=== PATIENT | male | born 1950 | race Caucasian/White ===

== ENCOUNTER → 2023-09-12 12:13 | Outpatient (REF) | payer MEDICARE, OTHER, SELFPAY ==
[2023-09-12 12:41] LABS: % Basophils 0.3 % (0-2); % Eosinophils 0.4 % (0-6); % Immature Granulocytes 0.3 % (0-0.5); % Lymphocytes 25.4 % (20.5-51.1); % Monocytes 7.7 % (1.7-9.3); % Neutrophils 65.9 % (42.2-75.2); Absolute Lymphocytes 1.7 10^3/uL (1.2-3.4); Absolute Monocytes 0.5 10^3/uL (0.1-0.6); Absolute Neutrophils 4.5 10^3/uL (1.4-6.5); Hematocrit 38.3 % (39.0-52.0); Hemoglobin 13.1 g/dL (13.0-18.0); Mean Corp Hgb Conc. 34.2 g/dL (33.0-37.0); Mean Corpuscular Hgb 31.4 pg (27.0-31.0); Mean Corpuscular Volume 91.8 fL (80.0-94.0); Mean Platelet Volume 9.7 fL (7.4-10.4); Nucleated Red Blood Cells % 0 % (-); Platelet Count 170 10^3/uL (130-400); Red Blood Cell Count 4.17 10^6/uL (4.70-6.10); Red Cell Dist. Width 13.9 % (11.5-14.5); White Blood Cell Count 6.9 10^3/uL (4.8-10.8)
[2023-09-12 13:29] LABS: ALT (SGPT) 20 U/L (0-50); AST (SGOT) 23 U/L (17-59); Albumin 4.6 g/dl (3.5-5.0); Alkaline Phosphatase 83 U/L (38-126); Blood Urea Nitrogen 26 mg/dl (9-20); Calcium 9.8 mg/dl (8.4-10.2); Carbon Dioxide 28 mmol/L (22-30); Chloride 101 mmol/L (98-107); Glucose 95 mg/dl (70-99); Potassium 4.5 mmol/L (3.5-5.1); Sodium 140 mmol/L (135-145); Total Bilirubin 1.7 mg/dl (0.2-1.3); Total Protein 7.8 g/dl (6.3-8.2); eGFR > 60.00
[2023-09-12 13:59] LABS: IgA 368 mg/dl (70-400); IgG 1504 mg/dl (700-1600); IgM 35 mg/dl (40-230)
[2023-09-12 14:02] LABS: Erythrocyte Sed Rate 57 mm/hour (0-20)
[2023-09-12 21:00] LABS: Hepatitis B Surface Antigen Negative (Negative)
[2023-09-12 21:17] LABS: Hepatitis B Surface Antibody Negative
[2023-09-12 21:43] LABS: Hepatitis A Antibody, Total Negative (Negative)
[2023-09-13 15:12] LABS: Hepatitis B Core Ab, Total Negative (Negative)
[2023-09-14 22:07] LABS: Quantiferon Mitogen minus NIL 9.05 IU/mL; Quantiferon NIL 0.03 IU/mL; Quantiferon Plus TB1 minus NIL 0.05 IU/mL (0.00-0.34); Quantiferon Plus TB2 minus NIL 0.04 IU/mL (0.00-0.34); Quantiferon TB Gold Plus Negative (Negative)
== END ==
LOC: REG 12:13
PROVIDERS: ATTENDING PHYSICIAN Internal Medicine; FAMILY PHYSICIAN Family Medicine
DX: K75.9 Inflammatory liver disease, unspecified (principal); M05.79 Rheumatoid arthritis with rheumatoid factor of multiple sites without organ or systems involvement; Z22.7 Latent tuberculosis; Z51.81 Encounter for therapeutic drug level monitoring
CPT/HCPCS: 36415; 80053; 82784; 85025; 85652; 86140; 86480; 86704; 86706; 86708; 87340

== ENCOUNTER → 2023-10-27 07:03 | Outpatient (REF) | payer MEDICARE, OTHER, SELFPAY ==
[2023-10-27 07:46] LABS: % Basophils 0.2 % (0-2); % Eosinophils 0.7 % (0-6); % Immature Granulocytes 0.2 % (0-0.5); % Neutrophils 64.9 % (42.2-75.2); Absolute Lymphocytes 1.5 10^3/uL (1.2-3.4); Absolute Monocytes 0.5 10^3/uL (0.1-0.6); Absolute Neutrophils 3.7 10^3/uL (1.4-6.5); Hematocrit 38.6 % (39.0-52.0); Mean Corp Hgb Conc. 33.7 g/dL (33.0-37.0); Mean Corpuscular Hgb 31.4 pg (27.0-31.0); Mean Corpuscular Volume 93.2 fL (80.0-94.0); Mean Platelet Volume 9.7 fL (7.4-10.4); Nucleated Red Blood Cells % 0 % (-); Platelet Count 179 10^3/uL (130-400); Red Blood Cell Count 4.14 10^6/uL (4.70-6.10); Red Cell Dist. Width 13.9 % (11.5-14.5); White Blood Cell Count 5.7 10^3/uL (4.8-10.8)
[2023-10-27 08:09] LABS: ALT (SGPT) 16 U/L (0-50); AST (SGOT) 20 U/L (17-59); Alkaline Phosphatase 73 U/L (38-126); Blood Urea Nitrogen 25 mg/dl (9-20); Calcium 9.4 mg/dl (8.4-10.2); Carbon Dioxide 24 mmol/L (22-30); Chloride 107 mmol/L (98-107); Glucose 106 mg/dl (70-99); HDL Cholesterol 44 mg/dl; LDL Cholesterol, Calculated 37 mg/dl; Potassium 4.3 mmol/L (3.5-5.1); Sodium 140 mmol/L (135-145); Total Bilirubin 1.4 mg/dl (0.2-1.3); Total Cholesterol 102 mg/dl (50-199); Total Protein 6.8 g/dl (6.3-8.2); Triglyceride 105 mg/dl (10-149); Very Low Density Lipoprotein 21 mg/dl (0-30); eGFR > 60.00
== END ==
LOC: REG 07:03
PROVIDERS: ATTENDING PHYSICIAN Family Medicine
DX: M54.50 Low back pain, unspecified (principal); M05.79 Rheumatoid arthritis with rheumatoid factor of multiple sites without organ or systems involvement; Z79.899 Other long term (current) drug therapy; I25.118 Atherosclerotic heart disease of native coronary artery with other forms of angina pectoris; J44.9 Chronic obstructive pulmonary disease, unspecified; J98.4 Other disorders of lung; I10 Essential (primary) hypertension; E78.00 Pure hypercholesterolemia, unspecified; G47.33 Obstructive sleep apnea (adult) (pediatric)
CPT/HCPCS: 36415; 80053; 80061; 85025

== ENCOUNTER → 2024-01-10 08:15 | Outpatient (REF) | payer MEDICARE, OTHER, SELFPAY | LOC: RCS 08:15 | PROVIDERS: ATTENDING PHYSICIAN Internal Medicine Cardiovascular Disease; FAMILY PHYSICIAN Family Medicine | DX: I35.1 Nonrheumatic aortic (valve) insufficiency (principal) | CPT/HCPCS: 93306 ==

== ENCOUNTER 2024-02-02 07:42 | Emergency (ER) | payer MEDICARE, OTHER, SELFPAY ==
[2024-02-02 07:42] VITALS: BP 187/77
--- NOTE | 2024-02-02 07:59 | ED.GENMED ---
History of Present Illness
General
Chief Complaint: DVT/Possible Blood Clot
Source: patient
Time Seen by Provider: 02/02/24 07:52
History of Present Illness
History of Present Illness:
73yoM with a history of hypertension and rheumatoid arthritis presenting for evaluation of a lump in his right lower leg. He bumped his lower leg while on a plane 5 days ago. He has been having increasing swelling and pain over the past few days and
wanted to get the lump checked out. He denies any fevers, chills, chest pain. He has baseline shortness of breath which is no worse than normal.
Past History
Past History
ED Past Medical History: Arrthythmia, COPD, HTN and Other (Arthritis)
ED Past Surgical History: None
Social History
Tobacco: Non-smoker
Alcohol: None
Drug: None
Personal:
Living: with family
Employment: Retired
Phy Exam
General Physical Exam
General Presentation: well appearing and no apparent distress
General age: appears stated age
General Skin: warm and dry
General Habitus: normal
General Mental: alert
Pulmonary Exam
Pulmonary Exam: no respiratory distress
Musculoskeletal Exam
Musculoskeletal Exam: other (Small area of swelling, ecchymosis, and tenderness to the R anterior lower leg consistent with a hematoma. Compartments soft. ROM of knee and ankle intact. 2+ DP pulse.)
Skin Exam
Skin Exam: normal color and warm/dry
Psychiatric Exam
Psychiatric Exam: normal mood/affect
Course
Orders/Labs/Results
Orders:
Orders
02/02/24 07:59
CR Leg Tibia/fibula Right 2 Vw Urgent
Comment:
Reason For Exam: Pain
Venous Doppler Lwr Ext Rt [US Periph Venous LOWER Ext RT] Urgent
Comment:
Reason For Exam: R lower leg pain
Vital Signs
Initial and Last Documented VS:
Initial Vital Signs
Temp Pulse Resp BP Pulse Ox
97.5 F 63 18 187/77 93
02/02/24 07:42 02/02/24 07:42 02/02/24 07:42 02/02/24 07:42 02/02/24 07:42
Last Documented Vital Signs
Temp Pulse Resp BP Pulse Ox
97.5 F 63 18 187/77 98
02/02/24 07:42 02/02/24 07:42 02/02/24 07:42 02/02/24 07:42 02/02/24 08:03
MDM/Problems Addressed
Differential Diagnosis Includes:
73yoM here with a lump to the R lower leg. Bumped his leg on a plane 5 days ago. C/o worsening pain and swelling. No CP/SOB. No fevers. He is hypertensive with otherwise normal vitals. He is well appearing in no distress. There is an area of
swelling in the R anterior lower leg that is tender. Exam consistent with hematoma. No clinical signs of infection. Doubt fracture or DVT.
Initial ED plan: Will check R tib/fib x-rays and venous duplex for completeness.
*Critical Care Note
Total Time (30-74mins, 75-104mins- exclusive of procedures): Not Applicable
Update Note
Update Note:
Venous duplex is negative for DVT. X-rays appear normal per my interpretation. He is stable for discharge. Supportive care discussed including ice and elevation. ED return precautions discussed. He was discharged in stable condition.
ED Attending Note
-
Portions of this chart may have been created with voice recognition software.� Occasional wrong word or��sound alike� substitutions may have occurred due to the inherent limitations of voice recognition software.
Discharge Plan
Departure
Patient Disposition: Home (Routine Discharge)
Date of Disposition: 02/02/24
Time of Disposition: 09:16
Patient with high blood pressure during this ER visit?: Yes
Discharge Problem:
Hematoma of right lower leg
Instructions: Hematoma
Prescriptions:
No Action
aspirin 81 MG tablet,delayed release (DR/EC)
81 mg PO .EVERY OTHER DAY
LISINOPRIL/HYDROCHLOROTHIAZIDE
1 tab PO DAILY
Patient Comments:
PATIENT THINKS HIS DOSE IS 20 MG
cholecalciferol (vitamin D3) 2,000 UNIT tablet
2,000 unit PO DAILY
albuterol sulfate [Proventil HFA] 90 MCG/PUFF HFA aerosol inhaler
1 puff inhalation Q4HPRN PRN (Reason: prn for shortness of breath) Qty: 1 0RF
atorvastatin 10 MG tablet
10 mg PO QPM
prednisone 5 MG tablet
5 mg PO DAILY
Activity Restrictions/Additional Instructions:
Apply ice to affected area and elevate your leg to help with swelling. Take Tylenol as needed for pain.
Please follow-up with your family doctor. Return to the ER with any worsening symptoms.
Interventions
Interventions:
*Risk Screen - Suicide Last Done: 02/02/24 08:03
*General Assessment Last Done: 02/02/24 08:03
*Neglect/Abuse Screening Last Done: 02/02/24 08:03
ED- Fall Risk Assessment Last Done: 02/02/24 08:03
*ED COVID-19 Vaccine History Last Done: 02/02/24 08:03
*Nursing Disposition Last Done: 02/02/24 09:31
ED- Cardiac Assessment Last Done: 02/02/24 08:03
ED- Pulmonary Assessment Last Done: 02/02/24 08:03
ED-Peripheral Vascular Assessment Last Done: 02/02/24 08:03
ED-Skin Assessment Last Done: 02/02/24 08:03
Discharge Date and Time
Discharge Date/Time: 02/02/24 09:31
Print Language: JAPANESE
[2024-02-02 08:03] VITALS: BMI 25.9
== END 2024-02-02 09:31 | disposition home or self-care (01) ==
LOC: EMR 07:42
PROVIDERS: EMERGENCY PHYSICIAN Emergency Medicine; FAMILY PHYSICIAN Family Medicine
DX: S80.11XA Contusion of right lower leg, initial encounter (principal); W22.8XXA Striking against or struck by other objects, initial encounter; I10 Essential (primary) hypertension; M06.9 Rheumatoid arthritis, unspecified; J44.9 Chronic obstructive pulmonary disease, unspecified
CPT/HCPCS: 99284; 73590; 93971

== ENCOUNTER → 2024-10-03 09:25 | Outpatient (REF) | payer MEDICARE, OTHER, SELFPAY | LOC: RAD 09:25 | PROVIDERS: ATTENDING PHYSICIAN Nurse Practitioner Family; FAMILY PHYSICIAN Family Medicine | DX: M79.675 Pain in left toe(s) (principal) | CPT/HCPCS: 73660 ==

== ENCOUNTER → 2024-11-22 07:21 | Outpatient (REF) | payer MEDICARE, OTHER, SELFPAY ==
[2024-11-22 07:51] LABS: % Basophils 0.3 % (0-2); % Eosinophils 0.5 % (0-6); % Immature Granulocytes 0.2 % (0-0.5); % Lymphocytes 29.2 % (20.5-51.1); % Monocytes 6.4 % (1.7-9.3); % Neutrophils 63.4 % (42.2-75.2); Absolute Lymphocytes 1.9 10^3/uL (1.2-3.4); Absolute Monocytes 0.4 10^3/uL (0.1-0.6); Absolute Neutrophils 4.1 10^3/uL (1.4-6.5); Hemoglobin 14.2 g/dL (13.0-18.0); Mean Corp Hgb Conc. 33.8 g/dL (33.0-37.0); Mean Corpuscular Hgb 31.1 pg (27.0-31.0); Mean Corpuscular Volume 91.9 fL (80.0-94.0); Mean Platelet Volume 10.1 fL (7.4-10.4); Nucleated Red Blood Cells % 0 % (-); Platelet Count 156 10^3/uL (130-400); Red Blood Cell Count 4.57 10^6/uL (4.70-6.10); Red Cell Dist. Width 13.7 % (11.5-14.5); White Blood Cell Count 6.4 10^3/uL (4.8-10.8)
[2024-11-22 11:06] LABS: ALT (SGPT) 18 U/L (0-50); AST (SGOT) 18 U/L (17-59); Albumin 4.5 g/dl (3.5-5.0); Alkaline Phosphatase 63 U/L (38-126); Blood Urea Nitrogen 26 mg/dl (9-20); Calcium 9.3 mg/dl (8.4-10.2); Carbon Dioxide 27 mmol/L (22-30); Chloride 109 mmol/L (98-107); Glucose 114 mg/dl (70-99); HDL Cholesterol 44 mg/dl; LDL Cholesterol, Calculated 33 mg/dl; Potassium 4.8 mmol/L (3.5-5.1); Sodium 145 mmol/L (135-145); Total Bilirubin 1.4 mg/dl (0.2-1.3); Total Cholesterol 98 mg/dl (50-199); Total Protein 7.7 g/dl (6.3-8.2); Triglyceride 105 mg/dl (10-149); Very Low Density Lipoprotein 21 mg/dl (0-30); eGFR > 60.00
[2024-11-23 15:00] LABS: Direct Bilirubin 0.4 mg/dl (0.0-0.4)
[2024-11-24 09:10] LABS: Glycohemoglobin (HgbA1c) 5.6 % (4.0-5.6)
== END ==
LOC: REG 07:21
PROVIDERS: ATTENDING PHYSICIAN Family Medicine
DX: H25.9 Unspecified age-related cataract (principal); I25.118 Atherosclerotic heart disease of native coronary artery with other forms of angina pectoris; J44.9 Chronic obstructive pulmonary disease, unspecified; M05.79 Rheumatoid arthritis with rheumatoid factor of multiple sites without organ or systems involvement; Z79.899 Other long term (current) drug therapy; I10 Essential (primary) hypertension; E78.00 Pure hypercholesterolemia, unspecified; G47.33 Obstructive sleep apnea (adult) (pediatric); G47.61 Periodic limb movement disorder; Z00.00 Encounter for general adult medical examination without abnormal findings; R73.01 Impaired fasting glucose
CPT/HCPCS: 36415; 80053; 80061; 82248; 83036; 85025

== ENCOUNTER → 2025-03-05 10:06 | Outpatient (REF) | payer MEDICARE, OTHER, SELFPAY | LOC: RCS 10:06 | PROVIDERS: ATTENDING PHYSICIAN Internal Medicine Cardiovascular Disease; FAMILY PHYSICIAN Family Medicine | DX: I35.1 Nonrheumatic aortic (valve) insufficiency (principal); R07.89 Other chest pain | CPT/HCPCS: 93306 ==

== ENCOUNTER → 2025-03-14 07:59 | Outpatient (REF) | payer MEDICARE, OTHER, SELFPAY | LOC: HWRCS 07:59 | PROVIDERS: ATTENDING PHYSICIAN Internal Medicine Cardiovascular Disease; FAMILY PHYSICIAN Family Medicine | DX: I35.1 Nonrheumatic aortic (valve) insufficiency (principal); R07.89 Other chest pain | CPT/HCPCS: 78452; 93017; A9500; J2785 ==

== ENCOUNTER → 2025-04-08 07:26 | Outpatient (REF) | payer MEDICARE, OTHER, SELFPAY | LOC: HWRAD 07:26 | PROVIDERS: ATTENDING PHYSICIAN Nurse Practitioner Adult Health; FAMILY PHYSICIAN Family Medicine | DX: R06.02 Shortness of breath (principal) | CPT/HCPCS: 71250 ==